=== PATIENT | male | born 1985 | race Caucasian/White ===

== ENCOUNTER 2018-10-03 13:19 | Emergency (ER) | payer BC, OTHER ==
[2018-10-03 13:20] VITALS: BMI 32.3
[2018-10-03 13:31] VITALS: BP 119/75; PULSE 79; RESP 18; TEMP 98; O2SAT 96
--- NOTE | 2018-10-03 15:25 | C.PDOC ---
History Of Present Illness 33 y/o male comes in stating that 2 months ago he was treated for a cough and early pneumonia. Patient states hes been dry coughing since then and for the last 2 weeks, hes had midsternal pain when coughing. He reports that when hes at work lifting something heavy, he feels the pain worsens, as well as when he sneezes and or when taking deep breaths. Denies fever, back pain, or abdominal pain. Patient states urinary symptoms improved except for the persistent cough. Chief Complaint (Nursing): Chest Pain History Per: Patient History/Exam Limitations: no limitations Onset/Duration Of Symptoms: Days Current Symptoms Are (Timing): Still Present Past Medical History Reviewed: Historical Data, Nursing Documentation, Vital Signs Vital Signs: Last Vital Signs Temp 98 F 10/03/18 13:27 Pulse 79 10/03/18 13:27 Resp 18 10/03/18 13:27 BP 119/75 10/03/18 13:27 Pulse Ox 96 10/03/18 13:27 Family History: States: No Known Family Hx - Social History Hx Alcohol Use: Yes Hx Substance Use: No - Immunization History Hx Tetanus Toxoid Vaccination: Yes Hx Influenza Vaccination: No Hx Pneumococcal Vaccination: No Review Of Systems Constitutional: Negative for: Fever, Chills Respiratory: Positive for: Cough. Negative for: Shortness of Breath Gastrointestinal: Negative for: Nausea, Vomiting, Abdominal Pain Musculoskeletal: Positive for: Other (Midsternal pain). Negative for: Back Pain Skin: Negative for: Rash Neurological: Negative for: Weakness, Numbness, Dizziness Physical Exam - Physical Exam Appears: Non-toxic, No Acute Distress Skin: Warm, Dry Head: Atraumatic, Normacephalic Eye(s): bilateral: Normal Inspection Oral Mucosa: Moist Neck: Supple Chest: Tenderness (easily reproducibe sternal tenderness on palpation) Cardiovascular: Rhythm Regular, No Murmur Respiratory: Normal Breath Sounds, No Rales, No Rhonchi, No Wheezing Gastrointestinal/Abdominal: Soft, No Tenderness Extremity: Bilateral: Atraumatic, Normal Color And Temperature, Normal ROM Neurological/Psych: Oriented x3, Normal Speech ED Course And Treatment O2 Sat by Pulse Oximetry: 96 (RA) Pulse Ox Interpretation: Normal - Other Rad CXR X-Ray: Read By Radiologist Interpretation: FINDINGS: Examination limited by habitus and hypoinflation. LUNGS: No focal consolidation. Please note that chest x-ray has limited sensitivity for the detection of pulmonary masses. PLEURA: No significant pleural effusion identified. No definite pneumothorax . CARDIOVASCULAR: Heart size appears within normal limits. No atherosclerotic calcification present. OSSEOUS STRUCTURES: Mild degenerative changes. VISUALIZED UPPER ABDOMEN: Unremarkable. OTHER FINDINGS: None. IMPRESSION: No focal consolidation. Medical Decision Making Medical Decision Making: Plan: --EKG --Chest XR --Ibuprofen PO Disposition Counseled Patient/Family Regarding: Studies Performed, Diagnosis, Need For Followup - Disposition Disposition: HOME/ ROUTINE Disposition Time: 13:30 Condition: STABLE Prescriptions: RX: Ibuprofen [Motrin Tab] 800 mg PO TID PRN #21 tab PRN Reason: Pain, Moderate (4-7) Instructions: Costochondritis (DC) Forms: General Discharge Instructions, [facility] (Bulgarian), Work Excuse - Clinical Impression Clinical Impression: Costochondritis, acute - PA / REGIONAL ECONOMIST / Resident Statement MD/DO has reviewed & agrees with the documentation as recorded. - Scribe Statement The provider has reviewed the documentation as recorded by the Scribnayla Villagomez All medical record entries made by the Summer were at my direction and personally dictated by me. I have reviewed the chart and agree that the record accurately reflects my personal performance of the history, physical exam, medical decision making, and the department course for this patient. I have also personally directed, reviewed, and agree with the discharge instructions and disposition.
--- NOTE | 2018-10-03 15:25 | C.PDOC ---
Chief Complaint (Nursing): Chest Pain Past Medical History Vital Signs: Last Vital Signs Temp 98 F 10/03/18 13:27 Pulse 79 10/03/18 13:27 Resp 18 10/03/18 13:27 BP 119/75 10/03/18 13:27 Pulse Ox 96 10/03/18 13:27 - Social History Hx Alcohol Use: Yes Hx Substance Use: No - Immunization History Hx Tetanus Toxoid Vaccination: Yes Hx Influenza Vaccination: No Hx Pneumococcal Vaccination: No ED Course And Treatment O2 Sat by Pulse Oximetry: 96 Disposition Counseled Patient/Family Regarding: Studies Performed, Diagnosis, Need For Followup, Rx Given - Disposition Disposition: HOME/ ROUTINE Disposition Time: 15:24 Condition: STABLE Prescriptions: Ibuprofen [Motrin Tab] 800 mg PO TID PRN #21 tab PRN Reason: Pain, Moderate (4-7) Instructions: Costochondritis (DC) Forms: [facility] (Guyanese), General Discharge Instructions - Clinical Impression Clinical Impression: Costochondritis, acute
--- NOTE | 2018-10-03 15:57 | RAD ---
HISTORY: sternal pain COMPARISON: Chest x-ray performed 02/13/13 TECHNIQUE: Chest PA and lateral FINDINGS: Examination limited by habitus and hypoinflation. LUNGS: No focal consolidation. Please note that chest x-ray has limited sensitivity for the detection of pulmonary masses. PLEURA: No significant pleural effusion identified. No definite pneumothorax . CARDIOVASCULAR: Heart size appears within normal limits. No atherosclerotic calcification present. OSSEOUS STRUCTURES: Mild degenerative changes. VISUALIZED UPPER ABDOMEN: Unremarkable. OTHER FINDINGS: None. IMPRESSION: No focal consolidation.
--- NOTE | 2018-10-04 14:52 | CARD ---
APPROVED REPORT Date of service: 10/03/2018 EKG Measurement Heart [id number] <Conclusion> Normal sinus rhythm Normal ECG
== END 2018-10-03 15:34 | disposition home or self-care (01) ==
LOC: C.ER 13:19
DX: M94.0 Chondrocostal junction syndrome [Tietze] (principal)